=== PATIENT | female | born 1950 | race American Indian/Alaskan Native ===

== ENCOUNTER 2016-09-28 10:56 | Emergency (ER) | payer BC, OTHER ==
[2016-09-28 11:11] VITALS: BP 125/53
--- NOTE | 2016-09-28 11:26 | EDM.PDOC ---
ED HISTORY OF PRESENT ILLNESS - General Chief Complaint: Respiratory Problem Stated Complaint: DIFFICULTY BREATHING,LEFT BACK PAIN Time Seen by Provider: 09/28/16 11:15 Source of Information: Reports: Patient History Limitations: Reports: No limitations - History of Present Illness INITIAL COMMENTS - FREE TEXT/NARRATIVE: This 66 yo female patient reports to the ED due to a 1 week history of sinus congestion, which progressed to a sore throat and shortness of breath. The patient reports she attempted to get into the Clinic today, but was not able to get an appointment until tomorrow. The patient reports she started to feel like she could not get air to get into her lungs or out of her lungs since last night. The patient reports increased anxiety with shortness of breath causing her to come to the ED for evaluation. The patient reports she thinks she has some allergy symptoms, but does not want to take anything over the counter for her allergies. Symptom Onset Date: 09/21/16 Timing/Duration: Reports: Constant, Getting worse Severity: moderate Location, General: Reports: head (initially congestion), neck (progressed to a sore throat), chest (now has increased shortness of breath) Quality: Reports: Dull Improves with: Reports: Rest Worsens with: Reports: Breathing Associated Symptoms (General): Reports: cough, shortness of breath Treatments ATTENDING PSYCHIATRIST: Reports: Acetaminophen - Related Data Allergies/ADRs: Allergies Allergy/AdvReac Type Severity Reaction Status Date / Time amitriptyline HCl Allergy Rash Verified 05/14/16 14:53 [From Elavil] butorphanol tartrate Allergy Vomiting Verified 05/14/16 14:53 [From Stadol] chlordiazepoxide HCl Allergy Vomiting Verified 05/14/16 14:53 [From Librium] codeine Allergy Vomiting Verified 05/14/16 14:53 diclofenac Allergy Vomiting Verified 05/14/16 14:53 erythromycin base Allergy Vomiting Verified 05/14/16 14:53 hydroxyzine Allergy Vomiting Verified 05/14/16 14:53 sulfamethoxazole Allergy Vomiting Verified 05/14/16 14:53 [From Bactrim] trimethoprim [From Bactrim] Allergy Vomiting Verified 05/14/16 14:53 Home Meds: Home Meds Aspirin 81 mg PO DAILY 10/27/14 [History] Carvedilol [Coreg] 12.5 mg PO BID 10/27/14 [History] Ferrous Sulfate [Feosol] 325 mg PO BID 10/27/14 [History] LORazepam [Ativan] 1 mg PO TID 10/27/14 [History] PNV95/Ferrous Fumarate/FA [ Multivitamins] 1 tab PO DAILY 10/27/14 [ History] Rosuvastatin [Crestor] 20 mg PO DAILY 10/27/14 [History] traZODone HCl [Trazodone HCl] 150 mg PO DAILY 10/27/14 [History] Escitalopram Oxalate [Lexapro] 3 tab PO DAILY 06/27/15 [History] Past Medical History HEENT History: Reports: Impaired vision Other HEENT History: Glasses Cardiovascular History: Reports: High cholesterol, Hypertension Respiratory History: Reports: None Gastrointestinal History: Reports: GERD Genitourinary History: Reports: None 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: Musculoskeletal History: Reports: None Neurological History: Reports: Concussion Psychiatric History: Reports: Anxiety, Depression Endocrine/Metabolic History: Reports: None Hematologic History: Reports: Iron deficiency Immunologic History: Reports: None Oncologic (Cancer) History: Reports: None Dermatologic History: Reports: None - Past Surgical History Head Surgeries/Procedures: Reports: None HEENT Surgical History: Reports: Tonsillectomy GI Surgical History: Reports: Appendectomy, Cholecystectomy Female Surgical History: Reports: Hysterectomy Social & Family History - Family History Family Medical History: Noncontributory - Tobacco Use Smoking Status *Q: Current Every Day Smoker Years of Tobacco use: 43 Packs/Tins Daily: 0.5 Used Tobacco, but Quit: No Second Hand Smoke Exposure: No - Caffeine Use Caffeine Use: Reports: Coffee, Soda - Alcohol Use Days Per Week of Alcohol Use: 0 - Recreational Drug Use Recreational Drug Use: No ED ROS GENERAL - Review of Systems Review Of Systems: ROS reveals no pertinent complaints other than HPI. ED EXAM, GENERAL - Physical Exam Exam: See Below Exam Limited By: No limitations General Appearance: alert, WD/WN, anxious, mild distress, obese Eye Exam: bilateral eye: EOMI, normal inspection, PERRL Ears: normal external exam, normal canal, hearing grossly normal, normal TMs Nose: normal inspection, normal mucosa, no blood Throat/Mouth: Normal inspection, Normal lips, Normal teeth, Normal gums, Normal oropharynx, Normal voice, No airway compromise Head: atraumatic, normocephalic Neck: normal inspection, supple, non-tender, full range of motion Respiratory/Chest: no respiratory distress, lungs clear, normal breath sounds, no accessory muscle use, chest non-tender. No: crackles, rales, rhonchi, wheezing Cardiovascular: normal peripheral pulses, regular rate, rhythm, no edema, no gallop, no JVD, no murmur, no rub GI/Abdominal: normal bowel sounds, soft, non tender, no organomegaly, no distention, no abnormal bruit, no mass (Female) Exam: Deferred Rectal (Female) Exam: Deferred Back Exam: normal inspection, full range of motion, NT Extremities: normal inspection, normal range of motion, non-tender, normal capillary refill, no pedal edema Neurological: alert, oriented, CN II-XII intact, normal cognition, normal gait, normal reflexes, no motor/sensory deficits Psychiatric: normal affect, anxious Skin Exam: Warm, Dry, Intact, Normal color, No rash Lymphatic: no adenopathy Course - Vital Signs Last Recorded V/S: Last Vital Signs Temp 36.7 C 09/28/16 11:10 Pulse 69 09/28/16 11:10 Resp 16 09/28/16 11:10 BP 125/53 L 09/28/16 11:10 Pulse Ox 98 09/28/16 11:10 - Orders/Labs/Meds Orders: Active Orders 24 hr Category Date Time Status Chest 2V [CR] Urgent Exams 09/28/16 11:21 Ordered Labs: Laboratory Tests 09/28/16 09/28/16 Range/Units 11:26 11:26 WBC 7.7 (5.0-10.0) 10^3/uL RBC 4.30 (4.2-5.4) 10^6/uL Hgb 13.0 (12.0-16.0) g/dL Hct 38.2 (37.0-47.0) % MCV 88.8 (80-100) fL MCH 30.2 (27.0-34.0) pg MCHC 34.0 (33.0-35.0) g/dL Plt Count 188 (150-450) 10^3/uL Neut % (Auto) 51.4 (42.2-75.2) % Lymph % (Auto) 39.9 (20.5-50.1) % Weld % (Auto) 8.4 H (2-8) % Eos % (Auto) 0.0 L (1.0-3.0) % Baso % (Auto) 0.3 (0.0-1.0) % Sodium 138 (135-145) mmol/L Potassium 4.1 (3.6-5.0) mmol/L Chloride 104 (101-111) mmol/L Carbon Dioxide 27.0 (21.0-31.0) mmol/L Anion Gap 11.1 BUN 14 (7-18) mg/dL Creatinine 0.9 (0.6-1.3) mg/dL Est Cr Clr Drug Dosing 54.53 mL/min Estimated GFR (MDRD) > 60 BUN/Creatinine Ratio 15.55 Glucose 117 H (74-105) mg/dL Calcium 9.3 (8.4-10.2) mg/dl Total Bilirubin 0.5 (0.2-1.0) mg/dL AST 27 (10-42) IU/L ALT 18 (10-60) IU/L Alkaline Phosphatase 52 (42-121) IU/L Total Protein 6.7 (6.7-8.2) g/dl Albumin 3.7 (3.2-5.5) g/dl Globulin 3.0 Albumin/Globulin Ratio 1.23 Departure - Departure Time of Disposition: 12:19 Disposition: Home, Self-Care 01 Condition: fair Clinical Impression: URI (upper respiratory infection) Qualifiers: URI type: unspecified URI Qualified Code(s): J06.9 - Acute upper respiratory infection, unspecified Instructions: Upper Respiratory Infection, Adult, [id number] Forms: ED Department Discharge Care Plan Goals: The patient was advised of the examination, lab and x-ray results during the visit. The patient was encouraged to continue to monitor her symptoms. If the patient has any additional symptoms or concerns, the patient should visit her primary care facility or return to the emergency department. - My Orders Last 24 Hours: My Active Orders 09/28/16 11:21 Chest 2V [CR] Urgent - Assessment/Plan Last 24 Hours: My Active Orders 09/28/16 11:21 Chest 2V [CR] Urgent
[2016-09-28 11:54] LABS: CHLORIDE,CL 104 mmol/L (101-111); SODIUM,NA 138 mmol/L (135-145)
--- NOTE | 2016-09-28 12:30 | CR ---
CLINICAL HISTORY: 66-year-old female with shortness of breath. INTERPRETATION: Subtle peribronchial "cuffing" suggesting reactive airway disease but no current sig ns of air trapping or lobar pneumonia. No lung mass, hilar lymphadenopathy, atelectasis or collapse. No pneumothorax. Normal cardiac silhouette without alveolar edema or dependent effusion. Lucinda thorax unremarkable ex cept for some arthritic changes dorsal spine. CONCLUSION: No signs of heart failure, lung mass or focal lobar pneumonia. Mild bronchitis.
== END 2016-09-28 12:26 | disposition home or self-care (01) ==
LOC: DL.ED 10:56
DX: J06.9 Acute upper respiratory infection, unspecified (principal); E78.00 Pure hypercholesterolemia, unspecified; I10 Essential (primary) hypertension; K21.9 Gastro-esophageal reflux disease without esophagitis; F41.9 Anxiety disorder, unspecified; F32.9 Major depressive disorder, single episode, unspecified; F17.210 Nicotine dependence, cigarettes, uncomplicated; Z98.890 Other specified postprocedural states; Z90.49 Acquired absence of other specified parts of digestive tract; Z90.710 Acquired absence of both cervix and uterus; Z79.82 Long term (current) use of aspirin; Z79.899 Other long term (current) drug therapy; Z88.5 Allergy status to narcotic agent; Z88.2 Allergy status to sulfonamides; Z88.8 Allergy status to other drugs, medicaments and biological substances
CPT/HCPCS: 36415; 71020; 80053; 85025; 99283

== ENCOUNTER 2017-07-24 07:58 | Emergency (ER) | payer BC, OTHER ==
[2017-07-24 08:09] VITALS: BP 110/50
--- NOTE | 2017-07-24 08:27 | EDM.PDOC ---
ED HPI GENERAL MEDICAL PROBLEM - General Chief Complaint: Respiratory Problem Stated Complaint: SICK Time Seen by Provider: 07/24/17 08:15 Source of Information: Reports: Patient History Limitations: Reports: No Limitations - History of Present Illness INITIAL COMMENTS - FREE TEXT/NARRATIVE: This 67 yo female patient reports to the ED with a 4 day history of sinus congestion, intermittent fevers (up to 101) and a productive cough (green phlegm ). The patient reports she took something for her symptoms on Monday (2 days ago), but has not taken anything since that time. Onset Date: 07/21/17 Duration: Constant, Getting Worse Location: Reports: Head, Face, Neck, Chest Quality: Reports: Ache, Pressure Severity: Moderate Improves with: Reports: None Worsens with: Reports: None Associated Symptoms: Reports: cough w sputum, Fever/Chills Frontal Headache Pain Score (Numeric/FACES): 5 - Related Data Allergies Allergy/AdvReac Type Severity Reaction Status Date / Time amitriptyline HCl Allergy Rash Verified 05/14/16 14:53 [From Elavil] butorphanol tartrate Allergy Vomiting Verified 05/14/16 14:53 [From Stadol] chlordiazepoxide HCl Allergy Vomiting Verified 05/14/16 14:53 [From Librium] codeine Allergy Vomiting Verified 05/14/16 14:53 diclofenac Allergy Vomiting Verified 05/14/16 14:53 erythromycin base Allergy Vomiting Verified 05/14/16 14:53 hydroxyzine Allergy Vomiting Verified 05/14/16 14:53 sulfamethoxazole Allergy Vomiting Verified 05/14/16 14:53 [From Bactrim] trimethoprim [From Bactrim] Allergy Vomiting Verified 05/14/16 14:53 Home Meds: Home Meds Aspirin 81 mg PO DAILY 10/27/14 [History] Carvedilol [Coreg] 12.5 mg PO BID 10/27/14 [History] Ferrous Sulfate [Feosol] 325 mg PO BID 10/27/14 [History] LORazepam [Ativan] 1 mg PO TID 10/27/14 [History] PNV95/Ferrous Fumarate/FA [ Multivitamins] 1 tab PO DAILY 10/27/14 [ History] Rosuvastatin [Crestor] 20 mg PO DAILY 10/27/14 [History] traZODone HCl [Trazodone HCl] 150 mg PO DAILY 10/27/14 [History] Escitalopram Oxalate [Lexapro] 3 tab PO DAILY 06/27/15 [History] Past Medical History HEENT History: Reports: Impaired Vision Other HEENT History: Glasses Cardiovascular History: Reports: High Cholesterol, Hypertension Respiratory History: Reports: None Gastrointestinal History: Reports: GERD Genitourinary History: Reports: None 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: Musculoskeletal History: Reports: None Neurological History: Reports: Concussion Psychiatric History: Reports: Anxiety, Depression Endocrine/Metabolic History: Reports: None Hematologic History: Reports: Iron Deficiency Immunologic History: Reports: None Oncologic (Cancer) History: Reports: None Dermatologic History: Reports: None - Past Surgical History Head Surgeries/Procedures: Reports: None GI Surgical History: Reports: Appendectomy, Cholecystectomy Female Surgical History: Reports: Hysterectomy Social & Family History - Family History Family Medical History: Noncontributory - Tobacco Use Smoking Status *Q: Never Smoker Years of Tobacco use: 43 Packs/Tins Daily: 0.5 Used Tobacco, but Quit: No Second Hand Smoke Exposure: No - Caffeine Use Caffeine Use: Reports: Coffee, Soda, Tea - Alcohol Use Days Per Week of Alcohol Use: 0 - Recreational Drug Use Recreational Drug Use: No ED ROS GENERAL - Review of Systems Review Of Systems: ROS reveals no pertinent complaints other than HPI. ED EXAM, GENERAL - Physical Exam Exam: See Below Exam Limited By: No Limitations General Appearance: Alert, WD/WN, Mild Distress Eye Exam: Bilateral Eye: EOMI, Normal Inspection, PERRL Ears: Normal External Exam, Normal Canal, Hearing Grossly Normal, Other (Right TM) Nose: Normal Inspection, Normal Mucosa, No Blood Throat/Mouth: Normal Inspection, Normal Lips, Normal Teeth, Normal Gums, Normal Oropharynx, Normal Voice, No Airway Compromise Head: Sinus Tenderness (frontal and maxillary) Neck: Normal Inspection, Supple, Non-Tender, Full Range of Motion Respiratory/Chest: No Respiratory Distress, Lungs Clear, Normal Breath Sounds, No Accessory Muscle Use, Chest Non-Tender Cardiovascular: Normal Peripheral Pulses, Regular Rate, Rhythm, No Edema, No Gallop, No JVD, No Murmur, No Rub GI/Abdominal: Normal Bowel Sounds, Soft, Non-Tender, No Organomegaly, No Distention, No Abnormal Bruit, No Mass (Female) Exam: Deferred Rectal (Female) Exam: Deferred Back Exam: Normal Inspection, Full Range of Motion, NT Extremities: Normal Inspection, Normal Range of Motion, Non-Tender, Normal Capillary Refill, No Pedal Edema Neurological: Alert, Oriented, CN II-XII Intact, Normal Cognition, Normal Gait, Normal Reflexes, No Motor/Sensory Deficits Psychiatric: Normal Affect, Normal Mood Skin Exam: Warm, Dry, Intact, Normal Color, No Rash Lymphatic: No Adenopathy Course - Vital Signs Last Recorded V/S: Last Vital Signs Temp 36.4 C 07/24/17 08:08 Pulse 75 07/24/17 08:08 Resp 16 07/24/17 08:08 BP 110/50 L 07/24/17 08:08 Pulse Ox 96 07/24/17 08:08 Departure - Departure Time of Disposition: 08:28 Disposition: Home, Self-Care 01 Condition: Fair Clinical Impression: Sinusitis chronic, frontal - Discharge Information Instructions: Sinusitis, Adult, [id number] Care Plan Goals: The patient was advised of the examination results during the visit. The patient was discharged with a script for Augmentin (500/125) to take 1 by mouth 2 times per day for 10 days. If the patient has any additional symptoms or concerns, the patient should follow-up with her primary care facility or return to the emergency department.
== END 2017-07-24 08:46 | disposition home or self-care (01) ==
LOC: DL.ED 07:58
DX: J32.1 Chronic frontal sinusitis (principal); E78.00 Pure hypercholesterolemia, unspecified; I10 Essential (primary) hypertension; Z88.8 Allergy status to other drugs, medicaments and biological substances; Z88.5 Allergy status to narcotic agent; Z88.2 Allergy status to sulfonamides; Z88.1 Allergy status to other antibiotic agents; Z79.82 Long term (current) use of aspirin; Z79.899 Other long term (current) drug therapy
CPT/HCPCS: 99283

== ENCOUNTER 2019-06-01 08:15 | Emergency (ER) | payer BC, OTHER, MEDICARE ==
--- NOTE | 2019-06-01 08:54 | EDM.PDOC ---
ED HPI GENERAL MEDICAL PROBLEM - General Chief Complaint: General Stated Complaint: NOT FEELING WELL FOR 2 DAYS AND GETTING WEAK Time Seen by Provider: 06/01/19 08:54 Source of Information: Reports: Patient, RN, RN Notes Reviewed History Limitations: Reports: No Limitations - History of Present Illness INITIAL COMMENTS - FREE TEXT/NARRATIVE: patient presents to ER with complaint of productive cough, low-grade fever, sinus congestion, and lower abdominal pain. patient states a month ago she was seen at [facility] and treated for a urinary tract infection which she feels did not fully resolve. She states she has been trying to drink a lot of water. Patient states she had quite a few people at her house for the holidays that were ill and coughing, also exposed to influenza. Patient denies nausea, vomiting, diarrhea. Patient states she has been taking [id number] decongestant, and states she is a smoker. Onset: Gradual Lower Abdomen Pain Score (Numeric/FACES): 4 - Related Data Allergies Allergy/AdvReac Type Severity Reaction Status Date / Time amitriptyline HCl Allergy Rash Verified 06/01/19 08:29 [From Elavil] butorphanol tartrate Allergy Vomiting Verified 06/01/19 08:29 [From Stadol] chlordiazepoxide HCl Allergy Vomiting Verified 06/01/19 08:29 [From Librium] codeine Allergy Vomiting Verified 06/01/19 08:29 diclofenac Allergy Vomiting Verified 06/01/19 08:29 erythromycin base Allergy Vomiting Verified 06/01/19 08:29 hydroxyzine Allergy Vomiting Verified 06/01/19 08:29 sulfamethoxazole Allergy Vomiting Verified 06/01/19 08:29 [From Bactrim] trimethoprim [From Bactrim] Allergy Vomiting Verified 06/01/19 08:29 Home Meds: Home Meds Aspirin 81 mg PO DAILY 10/27/14 [History] LORazepam [Ativan] 1 mg PO TID 10/27/14 [History] PNV95/Ferrous Fumarate/FA [ Multivitamins] 1 tab PO DAILY 10/27/14 [ History] Rosuvastatin [Crestor] 20 mg PO DAILY 10/27/14 [History] carvediloL [Coreg] 12.5 mg PO BID 10/27/14 [History] traZODone HCl [Trazodone HCl] 150 mg PO DAILY 10/27/14 [History] Escitalopram Oxalate [Lexapro] 3 tab PO DAILY 06/27/15 [History] Acetaminophen [Tylenol Extra Strength] 1,000 mg PO ASDIRECTED PRN 06/01/19 [ History] Past Medical History HEENT History: Reports: Impaired Vision Other HEENT History: Glasses Cardiovascular History: Reports: High Cholesterol, Hypertension Respiratory History: Reports: None Gastrointestinal History: Reports: GERD Genitourinary History: Reports: None 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: Musculoskeletal History: Reports: None Neurological History: Reports: Concussion Psychiatric History: Reports: Anxiety, Depression Endocrine/Metabolic History: Reports: None Hematologic History: Reports: Iron Deficiency Immunologic History: Reports: None Oncologic (Cancer) History: Reports: None Dermatologic History: Reports: None - Past Surgical History Head Surgeries/Procedures: Reports: None GI Surgical History: Reports: Appendectomy, Cholecystectomy Female Surgical History: Reports: Hysterectomy Social & Family History - Family History Family Medical History: Noncontributory - Tobacco Use Smoking Status *Q: Current Every Day Smoker Years of Tobacco use: 30 Packs/Tins Daily: 0.5 Second Hand Smoke Exposure: No - Caffeine Use Caffeine Use: Reports: Coffee, Soda - Recreational Drug Use Recreational Drug Use: No ED ROS GENERAL - Review of Systems Review Of Systems: Comprehensive ROS is negative, except as noted in HPI. ED EXAM, GENERAL - Physical Exam Exam: See Below Exam Limited By: No Limitations General Appearance: Alert, WD/WN, No Apparent Distress Eye Exam: Bilateral Eye: EOMI, Normal Inspection Ears: Normal External Exam, Hearing Grossly Normal Nose: Normal Inspection Throat/Mouth: Normal Inspection, Normal Voice, No Airway Compromise Head: Atraumatic, Normocephalic Neck: Normal Inspection, Supple, Non-Tender, Full Range of Motion Respiratory/Chest: No Respiratory Distress, Chest Non-Tender, Decreased Breath Sounds, Crackles (throat), Wheezing (expiratory) Cardiovascular: Normal Peripheral Pulses, Regular Rate, Rhythm, No Edema, No Gallop, No JVD, No Murmur, No Rub Peripheral Pulses: 2+: Radial (L), Radial (R) GI/Abdominal: Normal Bowel Sounds, Soft, Tender (RLQ, LLQ) (Female) Exam: Deferred Rectal (Female) Exam: Deferred Back Exam: Normal Inspection, Full Range of Motion, NT Extremities: Normal Inspection, Normal Range of Motion, Non-Tender, Normal Capillary Refill, No Pedal Edema Neurological: Alert, Oriented, CN II-XII Intact, Normal Cognition, Normal Gait, Normal Reflexes, No Motor/Sensory Deficits Psychiatric: Normal Affect, Normal Mood Skin Exam: Warm, Dry, Intact, Normal Color, No Rash Lymphatic: No Adenopathy Course - Vital Signs Last Recorded V/S: Last Vital Signs Temp 97.2 F 06/01/19 10:51 Pulse 58 L 06/01/19 10:51 Resp 16 06/01/19 10:51 BP 103/54 L 06/01/19 10:51 Pulse Ox 94 L 06/01/19 10:51 - Orders/Labs/Meds Orders: Active Orders 24 hr Category Date Time Status Peripheral IV Care [RC] . DIRECTED Care 06/01/19 10:36 Active Abdomen Pelvis w Cont [CT] Urgent Exams 06/01/19 10:35 Taken Chest 2V [CR] Urgent Exams 06/01/19 09:00 Taken CULTURE URINE [RM] Stat Lab 06/01/19 10:03 Received Sodium Chloride 0.9% [Saline Flush] Med 06/01/19 10:36 Active 10 ml FLUSH ASDIRECTED PRN Peripheral IV Insertion Adult [OM.PC] Stat Oth 06/01/19 10:36 Ordered Medication Orders Sodium Chloride (Saline Flush) 10 ml FLUSH ASDIRECTED PRN PRN Reason: Keep Vein Open Last Admin: 06/01/19 10:55 Dose: 10 ml Labs: Laboratory Tests 06/01/19 06/01/19 06/01/19 Range/Units 09:09 09:09 10:03 WBC 6.9 (5.0-10.0) 10^3/uL RBC 4.08 L (4.2-5.4) 10^6/uL Hgb 12.6 (12.0-16.0) g/dL Hct 36.6 L (37.0-47.0) % MCV 89.7 (80-100) fL MCH 30.9 (27.0-34.0) pg MCHC 34.4 (33.0-35.0) g/dL Plt Count 174 (150-450) 10^3/uL Neut % (Auto) 65.4 (42.2-75.2) % Lymph % (Auto) 22.2 (20.5-50.1) % Trigg % (Auto) 12.1 H (2-8) % Eos % (Auto) 0.0 L (1.0-3.0) % Baso % (Auto) 0.3 (0.0-1.0) % Sodium 138 (135-145) mmol/L Potassium 4.1 (3.6-5.0) mmol/L Chloride 103 (101-111) mmol/L Carbon Dioxide 26.0 (21.0-31.0) mmol/L Anion Gap 13.1 BUN 15 (7-18) mg/dL Creatinine 0.9 (0.6-1.3) mg/dL Est Cr Clr Drug Dosing 52.38 mL/min Estimated GFR (MDRD) > 60 BUN/Creatinine Ratio 16.66 Glucose 96 (74-105) mg/dL Calcium 9.1 (8.4-10.2) mg/dl Total Bilirubin 0.5 (0.2-1.0) mg/dL AST 22 (10-42) IU/L ALT 17 (10-60) IU/L Alkaline Phosphatase 39 L (42-121) IU/L Total Protein 6.8 (6.7-8.2) g/dl Albumin 3.9 (3.2-5.5) g/dl Globulin 2.9 Albumin/Globulin Ratio 1.34 Urine Color Yellow (YELLOW) Urine Appearance Cloudy (CLEAR) Urine pH 5.0 (5.0-9.0) Ur Specific Cutler >= 1.030 (1.005-1.030) Urine Protein Negative (NEGATIVE) Urine Glucose (UA) Negative (NEGATIVE) Urine Ketones Negative (NEGATIVE) Urine Occult Blood Moderate H (NEGATIVE) Urine Nitrite Negative (NEGATIVE) Urine Bilirubin Negative (NEGATIVE) Urine Urobilinogen 0.2 (0.2-1.0) mg/dL Ur Leukocyte Esterase Negative (NEGATIVE) Urine RBC 20-30 H /HPF Urine WBC 0-5 (0-5/HPF) /HPF Ur Epithelial Cells Moderate H (NOT SEEN) /HPF Amorphous Sediment Rare (NOT SEEN) /HPF Urine Bacteria Moderate H (0-FEW/HPF) /HPF Urine Mucus Few H (NOT SEEN) /LPF Influenza A: Negative Influenza B: Negative Meds: Medications Generic Name Dose Route Start Last Admin Trade Name Freq PRN Reason Stop Dose Admin Sodium Chloride 10 ml 06/01/19 10:36 06/01/19 10:55 Saline Flush FLUSH 10 ml ASDIRECTED PRN Administration Keep Vein Open Discontinued Medications Generic Name Dose Route Start Last Admin Trade Name Nicolasa PRN Reason Stop Dose Admin Iopamidol 100 ml 06/01/19 10:36 Isovue-300 (61%) IVPUSH 06/01/19 10:37 ONETIME ONE - Radiology Interpretation Free Text/Narrative:: chest x-ray: FINDINGS: Lungs: Unremarkable. No consolidation. Pleural space: Unremarkable. No pleural effusion. No pneumothorax. Heart/Mediastinum: Unremarkable. No cardiomegaly. Bones/joints: Unremarkable. IMPRESSION: No acute findings. Thank you for allowing us to participate in the care of your patient. Dictated and Authenticated by: Peewee Strong MD 06/01/2019 9:30 AM Central Time ([place] & [place]) CT Abdomen/Pelvis with contrast: FINDINGS: Liver: Normal. No mass. Gallbladder and bile ducts: The patient is status post cholecystectomy. Pancreas: Normal. No ductal dilation. Spleen: Normal. No splenomegaly. Adrenals: Normal. No mass. Kidneys and ureters: Hypodense lesions of the renal parenchyma, some consistent with cysts, others too small to definitely characterize but statistically likely to be additional cysts. Largest left upper pole renal cyst measures 6.3 cm. No hydronephrosis. Stomach and bowel: Unremarkable. No obstruction. No mucosal thickening. Appendix: No evidence of appendicitis. Intraperitoneal space: Unremarkable. No free air. No significant fluid collection. Vasculature: Unremarkable. No abdominal aortic aneurysm. Lymph nodes: Unremarkable. No enlarged lymph nodes. Bladder: Unremarkable as visualized. Reproductive: Status post hysterectomy. Bones/joints: There is multilevel degenerative disc disease. Soft tissues: Bilateral small inguinal hernias containing fat. No bowel within the inguinal hernias. No evidence of strangulation or obstruction. IMPRESSION: No acute findings. Thank you for allowing us to participate in the care of your patient. Dictated and Authenticated by: Peewee Strong MD 06/01/2019 11:12 AM Central Time ([place] & [place]) See radiologist's report Departure - Departure Time of Disposition: 11:18 Disposition: Home, Self-Care 01 Condition: Good Clinical Impression: Blood in urine Qualifiers: Hematuria type: unspecified type Qualified Code(s): R31.9 - Hematuria, unspecified - Discharge Information *PRESCRIPTION DRUG MONITORING PROGRAM REVIEWED*: No *COPY OF PRESCRIPTION DRUG MONITORING REPORT IN PATIENT PABLITO: No Instructions: Hematuria, Adult Forms: ED Department Discharge Additional Instructions: Follow up with your primary care facility next week Sepsis Event Note - Evaluation Sepsis Screening Result: No Definite Risk - Focused Exam Vital Signs: Vital Signs Temp Pulse Resp BP Pulse Ox 06/01/19 10:51 97.2 F 58 L 16 103/54 L 94 L 06/01/19 08:40 96 06/01/19 08:23 96.8 F 68 16 95/68 92 L Date Exam was Performed: 06/01/19 Time Exam was Performed: 11:17 - My Orders Last 24 Hours: My Active Orders 06/01/19 09:00 Chest 2V [CR] Urgent 06/01/19 10:03 CULTURE URINE [RM] Stat 06/01/19 10:35 Abdomen Pelvis w Cont [CT] Urgent 06/01/19 10:36 Peripheral IV Care [RC] . DIRECTED Sodium Chloride 0.9% [Saline Flush] 10 ml FLUSH ASDIRECTED PRN Peripheral IV Insertion Adult [OM.PC] Stat - Assessment/Plan Last 24 Hours: My Active Orders 06/01/19 09:00 Chest 2V [CR] Urgent 06/01/19 10:03 CULTURE URINE [RM] Stat 06/01/19 10:35 Abdomen Pelvis w Cont [CT] Urgent 06/01/19 10:36 Peripheral IV Care [RC] . DIRECTED Sodium Chloride 0.9% [Saline Flush] 10 ml FLUSH ASDIRECTED PRN Peripheral IV Insertion Adult [OM.PC] Stat
[2019-06-01 09:37] LABS: ANION GAP 13.1; CHLORIDE,CL 103 mmol/L (101-111); SODIUM,NA 138 mmol/L (135-145)
[2019-06-01] MEDS ORDERED: Sodium Chloride 0.9% 10 ML Syringe FLUSH PRN (10:36)
[2019-06-01] MEDS ORDERED: Iopamidol 612 MG/ML 100 ML Bottle IVPUSH ONE (10:36)
[2019-06-01 10:52] VITALS: BP 103/54; PULSE 58
== END 2019-06-01 11:32 | disposition home or self-care (01) ==
LOC: DL.ED 08:15
DX: R31.9 Hematuria, unspecified (principal); H54.7 Unspecified visual loss; E78.00 Pure hypercholesterolemia, unspecified; I10 Essential (primary) hypertension; K21.9 Gastro-esophageal reflux disease without esophagitis; F41.9 Anxiety disorder, unspecified; F32.9 Major depressive disorder, single episode, unspecified; F17.210 Nicotine dependence, cigarettes, uncomplicated; Z90.710 Acquired absence of both cervix and uterus; Z90.49 Acquired absence of other specified parts of digestive tract; Z88.1 Allergy status to other antibiotic agents; Z88.5 Allergy status to narcotic agent; Z88.2 Allergy status to sulfonamides; Z88.8 Allergy status to other drugs, medicaments and biological substances; Z79.82 Long term (current) use of aspirin; Z79.899 Other long term (current) drug therapy
CPT/HCPCS: 36415; 71046; 74177; 80053; 81001; 85025; 87086; 87804; 99284; Q9967

== ENCOUNTER 2022-11-22 06:39 | Day surgery (SDC) | payer MEDICARE, OTHER ==
[~2022-11-22 06:39] MED LIST: Sodium Chloride 0.9% 10 ML Syringe FLUSH PRN
[2022-11-22] MEDS ORDERED: Midazolam 1 MG/ML 2 ML SDV IV ONE ×7 (06:40→07:22)
[2022-11-22] MEDS ORDERED: fentaNYL 100 MCG/2 ML SDV IV ONE ×6 (06:40→07:25)
[2022-11-22] MEDS ORDERED: Dextrose 5%-0.45% NaCl 1,000 ML IV SCH (07:00)
[2022-11-22] MEDS ORDERED: fentaNYL 100 MCG/2 ML SDV ONE (07:07)
[2022-11-22] MEDS ORDERED: Midazolam 1 MG/ML 2 ML SDV ONE (07:07)
[2022-11-22 08:55] VITALS: BP 110/55; PULSE 54
== END 2022-11-22 09:15 | disposition home or self-care (01) ==
LOC: DL.ENDO 06:39
PROVIDERS: ATTEND Internal Medicine Gastroenterology
DX: K57.30 Diverticulosis of large intestine without perforation or abscess without bleeding (principal); E66.9 Obesity, unspecified; F41.1 Generalized anxiety disorder; I10 Essential (primary) hypertension; E78.00 Pure hypercholesterolemia, unspecified; E66.01 Morbid (severe) obesity due to excess calories; Z98.890 Other specified postprocedural states; Z88.5 Allergy status to narcotic agent
CPT/HCPCS: J2250; J3010; J7042

== ENCOUNTER 2023-11-07 15:32 | Emergency (ER) | payer MEDICARE, OTHER ==
[2023-11-07 15:46] VITALS: BP 146/122; PULSE 65
[2023-11-07] MEDS: Ketorolac 30 MG/ML SDV IM ONE (15:56)
[2023-11-07] MEDS: Acetaminophen 500 MG Tab PO ONE (15:57)
== END 2023-11-07 16:51 | disposition home or self-care (01) ==
LOC: DL.ED 15:32
DX: R07.82 Intercostal pain (principal); E78.00 Pure hypercholesterolemia, unspecified; F17.210 Nicotine dependence, cigarettes, uncomplicated; Z88.1 Allergy status to other antibiotic agents; Z88.2 Allergy status to sulfonamides; Z88.8 Allergy status to other drugs, medicaments and biological substances; Z79.82 Long term (current) use of aspirin; Z79.890 Hormone replacement therapy; Z79.899 Other long term (current) drug therapy; Z86.16 Personal history of COVID-19; Z90.49 Acquired absence of other specified parts of digestive tract; Z90.710 Acquired absence of both cervix and uterus; W01.0XXA Fall on same level from slipping, tripping and stumbling without subsequent striking against object, initial encounter
CPT/HCPCS: 71101; 96372; 99283; A9270; J1885